=== PATIENT | male | born 1965 | race Caucasian/White ===

== ENCOUNTER 2020-05-07 16:37 | Outpatient (REF) | payer MEDICARE, MEDICAID, SELFPAY | END 2020-05-07 16:38 | disposition home or self-care (01) | LOC: HO.LAB 16:37 | PROVIDERS: Visit Provider Internal Medicine | DX: Z20.828 Contact with and (suspected) exposure to other viral communicable diseases (principal) | CPT/HCPCS: C9803; U0003 ==

== ENCOUNTER 2021-10-23 03:47 | Emergency (ER) | payer MEDICARE, MEDICAID, SELFPAY ==
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
[2021-10-23 03:52] VITALS: BP 160/98; PULSE 94; O2SAT 97
[2021-10-23 03:57] VITALS: BP 139/83; PULSE 86; RESP 22; TEMP 37.9; O2SAT 95; BMI 30.1
[2021-10-23 04:56] LABS: Basophils Percent Auto 0.3 % (0-2); Eosinophils Absolute Auto 0.1 X10*3/uL (0.0-0.4); Eosinophils Percent Auto 1.2 % (0-4); Hematocrit 47.1 % (42.0-52.0); Hemoglobin 16.1 g/dl (14.0-18.0); Imm Gran Abs Auto 0.01 X10*3/uL (0.00-0.03); Imm Gran Pct Auto 0.1 % (0.0-0.4); Lymphocytes Absolute Auto 1.7 X10*3/uL (1.2-4.9); Lymphocytes Percent Auto 22.4 % (20-40); MANUAL DIFF FLAG NO; Mean Corpuscular HGB Conc 34.2 g/dl (31.0-36.0); Mean Corpuscular Hemoglobin 30.3 pg (27.0-33.0); Mean Corpuscular Volume 88.5 fL (80.0-98.0); Mean Platelet Volume 9.4 fL (9.4-12.4); Monocytes Absolute Auto 0.5 X10*3/uL (0.1-1.2); Monocytes Percent Auto 6.7 % (2-11); Neutrophils Absolute Auto 5.3 x10*3/uL (2.0-8.3); Neutrophils Percent Auto 69.3 % (45-73); Platelet Count 199 X10*3/uL (160-400); Red Blood Count 5.32 X10*6/uL (4.60-5.80); Red Cell Distribution Width 12.5 % (11.0-16.0); White Blood Count 7.6 X10*3/uL (4.8-10.8)
[2021-10-23 05:01] LABS: INTERNATIONAL NORM RATIO 0.9 (0.9-1.1); Prothrombin Time 10.7 SEC (9.9-13.0)
[2021-10-23 05:07] LABS: Ethanol 245 mg/dL
[2021-10-23 05:11] LABS: Alanine Aminotransferase 19 U/L (0-40); Albumin Level 4.5 g/dL (3.5-5.0); Alkaline Phosphatase 76 U/L (39-117); Anion Gap 15 (12-20); Aspartate Amino Transferase 16 U/L (5-37); Bilirubin Total 1.5 mg/dL (0.0-1.0); Blood Urea Nitrogen 13 mg/dL (9-16); Calcium 9.3 mg/dL (8.4-10.2); Carbon Dioxide 23 mmol/L (22-29); Chloride 106 mmol/L (96-108); Creatinine Clr Calc Pharmacy 110.3; Estimated Glomerular Filt Rate > 60; Glucose Random 113 mg/dL (60-115); Potassium 3.8 mmol/L (3.3-5.1); Sodium 140 mmol/L (135-145); Total Protein 7.4 g/dL (6.5-8.0)
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
== END 2021-10-23 06:28 | disposition home or self-care (01) ==
PROVIDERS: Emergency Provider Student in an Organized Health Care Education/Training Program
DX: Z04.1 Encounter for examination and observation following transport accident (principal); F10.129 Alcohol abuse with intoxication, unspecified; Y90.8 Blood alcohol level of 240 mg/100 ml or more; R52 Pain, unspecified
CPT/HCPCS: 36415; 70450; 72125; 80053; 82077; 85025; 85610; 99284

== ENCOUNTER 2024-01-22 01:35 | Emergency (ER) | payer MEDICARE, MEDICAID, SELFPAY ==
[2024-01-22] VITALS (7 sets, daily range): BP systolic 128–184; BP diastolic 82–99; PULSE 55–87; RESP 14–20; TEMP 36.4–36.9; O2SAT 94–97; BMI 35.9
--- NOTE | ~2024-01-22 | CT_ITS ---
EXAMINATION: CT ABDOMEN AND PELVIS WITHOUT CONTRAST CLINICAL INFORMATION: Acute pancreatitis evaluate for complication COMPARISON: None available. TECHNIQUE: Multidetector volumetric imaging was performed from the superior aspect of the liver through the pubic symphysis. Sagittal and coronal reformatted images were obtained on the technologist's workstation. This CT examination was performed using dose optimization techniques as appropriate, variously including the following: *Automated exposure control *Adjustment of mA and/or kV according to patient size (this includes techniques or standardized protocols for targeted exams where dose is matched to indication/reason for exam; i.e. extremities or head) *Use of iterative reconstruction technique DLP: 753 mGy-cm FINDINGS: LUNG BASES: Bibasilar atelectasis. No pneumothorax. No large pleural effusion. Elevation right hemidiaphragm LIVER, GALLBLADDER, AND BILIARY TREE: Liver is mildly enlarged. No focal hepatic lesion or biliary ductal dilatation is present. The gallbladder is unremarkable with no evidence of radiopaque gallstones, gallbladder wall thickening, or obvious pericholecystic inflammatory changes. PANCREAS: Mild fullness of the pancreas without peripancreatic inflammatory changes. Pancreatic duct is not dilated. SPLEEN: Unremarkable. ADRENAL GLANDS: Unremarkable. KIDNEYS AND URETERS: Bilateral renal hypodense foci the largest in the left renal upper pole demonstrating fluid attenuation statistically representing cysts, not requiring follow-up. The kidneys are normal in size, shape, and attenuation. No hydronephrosis, hydroureter, or calculi seen. No perinephric stranding. BLADDER: Unremarkable. GASTROINTESTINAL TRACT: Small hiatal hernia. The small and large bowel are unremarkable. The appendix is unremarkable. ABDOMINAL WALL: Fat filled left inguinal hernia. LYMPH NODES: No enlarged lymph nodes per size criteria. VASCULAR: Abdominal aorta is nonaneurysmal. PELVIC VISCERA: Prostate measures 3.6 cm with calcifications within its body. OSSEOUS STRUCTURES: Multiple the level degenerative changes of the thoracolumbar lumbosacral spine. Sclerotic focus left femoral head statistically representing a bone island. Degenerative arthropathy of the right sacroiliac joint. CT/CT abdomen pelvis wo IV con IMPRESSION: 1. Mild fullness of the pancreas without peripancreatic inflammatory changes. Pancreatic duct is not dilated. 2. Liver is mildly enlarged. 3. Bilateral renal hypodense foci the largest in the left renal upper pole demonstrating fluid attenuation statistically representing cysts, not requiring follow-up. 4. Small hiatal hernia. 5. Fat filled left inguinal hernia.
--- NOTE | ~2024-01-22 | CT_ITS ---
EXAMINATION: CT HEAD WITHOUT CONTRAST CT CERVICAL SPINE WITHOUT CONTRAST CLINICAL INFORMATION: Injury. Pain. Intoxication. COMPARISON: 10/23/2021 TECHNIQUE: Contiguous axial imaging was performed from the skull base to vertex without intravenous administration of contrast. This CT examination was performed using dose optimization techniques as appropriate, variously including the following: *Automated exposure control *Adjustment of mA and/or kV according to patient size (this includes techniques or standardized protocols for targeted exams where dose is matched to indication/reason for exam; i.e. extremities or head) *Use of iterative reconstruction technique DLP: 1559 mGy-cm FINDINGS: The lateral, third and fourth ventricles are normally outlined. The cortical sulci and basal cisterns are normally outlined as well. There is no acute territorial defect, hemorrhage or midline shift. The extra-axial spaces are unremarkable. Calvarium/scalp: Intact. Maxillofacial sinuses and mastoids: There is mucosal thickening of the left maxillary sinus. The remaining maxillofacial sinuses are clear. There is mild bilateral mastoid opacification. Cervical spine: The alignment is normal. There is anterior fusion at C6-C7. There is diffuse bwrn-[id number] cervical disc degenerative change with loss of disc space, endplate change and posterior osteophytes associated with diffuse mild facet osteoarthritic hypertrophic change with multilevel mild spinal canal and multilevel [id number]-it-[id number] neuroforaminal narrowing. The bone mineralization is normal. There is no fracture. The soft tissues are unremarkable. The visualized upper lung nieto are clear. CT/CT cervical spine wo IV con IMPRESSION: 1. No acute intracranial process or acute cervical spine abnormality. 2. Mild bilateral mastoid opacification. Mucosal thickening left maxillary sinus. 3. Anterior fusion C6-C7. Diffuse [id number] cervical spondylosis with multilevel mild spinal canal and multilevel qgzc-[id number]-krhqzlmr neuroforaminal narrowing.
--- NOTE | ~2024-01-22 | XR_ITS ---
EXAMINATION: XR CHEST CLINICAL INFORMATION: Chest pain. COMPARISON: None available. TECHNIQUE: Frontal view of the chest was obtained. FINDINGS: No significant abnormality is noted involving the heart, lungs, mediastinum, bony thorax or soft tissues. XR/XR chest 1V IMPRESSION: No evidence for active cardiopulmonary disease.
--- NOTE | ~2024-01-22 | CT_ITS ---
EXAMINATION: CT HEAD WITHOUT CONTRAST CT CERVICAL SPINE WITHOUT CONTRAST CLINICAL INFORMATION: Injury. Pain. Intoxication. COMPARISON: 10/23/2021 TECHNIQUE: Contiguous axial imaging was performed from the skull base to vertex without intravenous administration of contrast. This CT examination was performed using dose optimization techniques as appropriate, variously including the following: *Automated exposure control *Adjustment of mA and/or kV according to patient size (this includes techniques or standardized protocols for targeted exams where dose is matched to indication/reason for exam; i.e. extremities or head) *Use of iterative reconstruction technique DLP: 1559 mGy-cm FINDINGS: The lateral, third and fourth ventricles are normally outlined. The cortical sulci and basal cisterns are normally outlined as well. There is no acute territorial defect, hemorrhage or midline shift. The extra-axial spaces are unremarkable. Calvarium/scalp: Intact. Maxillofacial sinuses and mastoids: There is mucosal thickening of the left maxillary sinus. The remaining maxillofacial sinuses are clear. There is mild bilateral mastoid opacification. Cervical spine: The alignment is normal. There is anterior fusion at C6-C7. There is diffuse hjuo-ak-gyfjiqdx cervical disc degenerative change with loss of disc space, endplate change and posterior osteophytes associated with diffuse mild facet osteoarthritic hypertrophic change with multilevel mild spinal canal and multilevel sork-wu-pkqjjpqx neuroforaminal narrowing. The bone mineralization is normal. There is no fracture. The soft tissues are unremarkable. The visualized upper lung nieto are clear. CT/CT head/brain wo IV con IMPRESSION: 1. No acute intracranial process or acute cervical spine abnormality. 2. Mild bilateral mastoid opacification. Mucosal thickening left maxillary sinus. 3. Anterior fusion C6-C7. Diffuse jtlg-hi-srdysxim cervical spondylosis with multilevel mild spinal canal and multilevel shhw-op-zfianxap neuroforaminal narrowing.
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
--- NOTE | 2024-01-22 02:26 | ECG_ITS ---
Test Reason : Fall Blood Pressure : / mmHG Vent. Rate : 055 BPM Atrial Rate : 055 BPM P-R Int : 182 ms QRS Dur : 098 ms QT Int : 436 ms P-R-T Axes : 036 -06 033 degrees QTc Int : 417 ms Sinus bradycardia Anterior infarct , age undetermined Abnormal ECG No previous ECGs available Referred By: Jackie Garcia Electronically Signed By:KEMAL VARELA MD
[2024-01-22 02:34] LABS: MANUAL DIFF FLAG NO
[2024-01-22 02:42] LABS: Basophils Percent Auto 0.5 % (0-2); Eosinophils Absolute Auto 0.2 X10*3/uL (0.0-0.4); Eosinophils Percent Auto 2.6 % (0-4); Hematocrit 45.3 % (42.0-52.0); Hemoglobin 16.2 g/dl (14.0-18.0); Imm Gran Abs Auto 0.03 X10*3/uL (0.00-0.03); Imm Gran Pct Auto 0.5 % (0.0-0.4); Lymphocytes Absolute Auto 1.9 X10*3/uL (1.2-4.9); Lymphocytes Percent Auto 28.3 % (20-40); Mean Corpuscular HGB Conc 35.8 g/dl (31.0-36.0); Mean Corpuscular Hemoglobin 30.4 pg (27.0-33.0); Monocytes Absolute Auto 0.5 X10*3/uL (0.1-1.2); Monocytes Percent Auto 7.3 % (2-11); Neutrophils Percent Auto 60.8 % (45-73); Platelet Count 177 X10*3/uL (160-400); Red Blood Count 5.33 X10*6/uL (4.60-5.80); Red Cell Distribution Width 12.9 % (11.0-16.0); White Blood Count 6.5 X10*3/uL (4.8-10.8)
--- NOTE | 2024-01-22 02:46 | MHC.EDTECH ---
Patient BIBA,changed into hospital attire, vitals taken and placed on the unionmelt operator ,EKG taken per order,labs drawn and sent to lab.
[2024-01-22 02:50] LABS: Alanine Aminotransferase 22 U/L (0-40); Albumin Level 4.5 g/dL (3.5-5.0); Alkaline Phosphatase 81 U/L (39-117); Anion Gap 18 (12-20); Aspartate Amino Transferase 25 U/L (5-37); Bilirubin Direct 0.4 mg/dL (0.0-0.5); Bilirubin Total 1.4 mg/dL (0.0-1.0); Blood Urea Nitrogen 18 mg/dL (9-16); Calcium 9.6 mg/dL (8.4-10.2); Carbon Dioxide 18 mmol/L (22-29); Chloride 104 mmol/L (96-108); Estimated Glomerular Filt Rate > 60; Ethanol 251 mg/dL; Glucose Random 114 mg/dL (60-115); Lipase 177 U/L (8-78); Potassium 3.2 mmol/L (3.3-5.1); Sodium 137 mmol/L (135-145); Total Protein 7.7 g/dL (6.5-8.0)
--- NOTE | 2024-01-22 03:01 | MHC.EDTECH ---
Patient urinated 250MLS of yellow urine in urinal,sample collected and sent to lab
[2024-01-22 03:09] LABS: Appearance Urine Clear; Color Urine Yellow; Glucose Urine UA Negative (Negative); Leukocyte Esterase Urine Negative (Negative); Nitrite Urine Negative (Negative); Specific Gravity - Urine <= 1.005 (1.005-1.025); UMIC TRIGGER UACC YES; Urine Blood Negative (Negative); Urine Ketones Negative (Negative); Urine Protein 30 (1+) mg/dL (Neg-Trace)
[2024-01-22 03:11] LABS: Bacteria Urine None Seen (None Seen); Hyaline Casts Urine 0-2 /LPF (0-2); RBC Urine 0-2 /HPF (0-2); Squamous Epithelial Cell Urine 0-2 /HPF (0-2); WBC Urine 0-5 /HPF (0-5)
[2024-01-22 03:18] LABS: Amphetamine Screen Urine Not Detected (Not Detect); Barbiturates, Urine Not Detected (Not Detect); Benzodiazepines Screen Urine Not Detected (Not Detect); Buprenorphine Scr Not Detected (Not Detect); Cannabinoid Screen Urine POSITIVE (Not Detect); Cocaine Screen Urine POSITIVE (Not Detect); Fentanyl, urine Not Detected (Not Detect); Methadone Screen, Urine Not Detected (Not Detect); Opiate Screen Urine Not Detected (Not Detect); Oxycodone Screen Urine Not Detected (Not Detect); Phencyclidine Screen Urine Not Detected (Not Detect)
[2024-01-22] MEDS: Potassium Chloride Packet 20 MEQ PACKET 40 MEQ PO (04:07)
--- NOTE | 2024-01-22 04:14 | MHC.EDTECH ---
Patient urinated 900MLS in urinal (yellow) patient is resting quietly at this time,call fernández in reach
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
--- NOTE | 2024-01-22 05:58 | MHC.EDTECH ---
Emptied 800MLS from urinal,repeat lab drawn and sent to lab.
--- NOTE | 2024-01-22 06:09 | PC.NURSE ---
Pt wanting to call sister for ride. Attemt to walk pt but c/o 910 chest pain, aching in nature. Discussed with and verbal order for CXR and trop complete and pending results. Pain resolves at rest
[2024-01-22 06:21] LABS: Troponin-I High Sensitivity 4.2 ng/L (<3.5-35.0)
[2024-01-22] MEDS: 0.9 % Sodium Chloride 1,000 ML 999 ML IV (06:27)
[2024-01-22] MEDS: Morphine Sulfate 2 MG/ML CARTRIDGE IVPUSH (06:28)
--- NOTE | 2024-01-22 06:39 | PC.NURSE ---
Pt reports his chest pain is severe, crying in bed, 03/22. notified and in to assess pt. D/t lipase elevated, order for IV, #20 placed L-AC. IV fluids hung and morphine administered per order. Pt went to CT and results pending.
[2024-01-22] MEDS: HYDROmorphone HCl 1 MG/ML SYRINGE IVPUSH (07:22)
[2024-01-22 07:58] LABS: Lipase 139 U/L (8-78)
[2024-01-22] MEDS: Magnesium Hydrox/Alum Hydrox 30 ML ORAL.SUSP 15 ML PO (08:18)
[2024-01-22] MEDS: Lidocaine HCl Viscous 2 % 15 ML SOLUTION MUCOUS MEM (08:18)
== END 2024-01-22 09:10 | disposition home or self-care (01) ==
PROVIDERS: Emergency Medicine; Emergency Provider Emergency Medicine; PCP Internal Medicine
DX: S00.81XA Abrasion of other part of head, initial encounter (principal); F10.129 Alcohol abuse with intoxication, unspecified; K86.0 Alcohol-induced chronic pancreatitis; Y90.8 Blood alcohol level of 240 mg/100 ml or more; F14.10 Cocaine abuse, uncomplicated; E87.6 Hypokalemia; F12.10 Cannabis abuse, uncomplicated; R11.0 Nausea; R51.9 Headache, unspecified; M54.2 Cervicalgia; R07.89 Other chest pain; R10.2 Pelvic and perineal pain; R00.1 Bradycardia, unspecified; W01.0XXA Fall on same level from slipping, tripping and stumbling without subsequent striking against object, initial encounter; Y93.01 Activity, walking, marching and hiking; Y92.89 Other specified places as the place of occurrence of the external cause; Y99.8 Other external cause status; Z71.51 Drug abuse counseling and surveillance of drug abuser; Z51.81 Encounter for therapeutic drug level monitoring; Z79.899 Other long term (current) drug therapy
CPT/HCPCS: 36415; 70450; 71045; 72125; 74176; 80048; 80076; 80307; 81001; 83690; 84484; 85025; 93005; 96361; 96374; 96375; 99285; J1170; J2270

== ENCOUNTER → 2024-01-22 02:26 | Outpatient (BNV) | payer MEDICARE, SELFPAY | PROVIDERS: Emergency Provider Emergency Medicine; PCP Internal Medicine; Visit Provider Internal Medicine Cardiovascular Disease | DX: R00.1 Bradycardia, unspecified (principal) | CPT/HCPCS: 93010 ==